=== PATIENT | female | born 1980 | race Caucasian/White ===

== ENCOUNTER 2018-11-19 13:12 | Outpatient (CLI) | payer OTHER ==
--- NOTE | 2018-11-19 14:10 | CT ---
EXAM: CT Lower Ext Lt WO Con PROVIDED CLINICAL HISTORY: Left knee pain after stepping off ladder in September 2018. Persistent pain. History of prior knee replace ment. COMPARISON: None FINDINGS: Postsurgical changes related to a left total knee prosthesis are noted. No hardware complication is a ppreciated. There is a transverse lucency extending through the inferior pole of the patella suggesting a nondisplaced fracture. This is at the level of the inferior aspect of the patellar prost hesis. No additional fracture is seen, and there is no dislocation seen. There is fluid seen within the suprapatellar bursa. No hematoma or fluid is seen within the subcutane ous soft tissues about the left knee. IMPRESSION: Postsurgical changes related to left total knee prosthesis with a nondisplaced fracture involving the inferior pole of the patella.
== END 2018-11-19 13:13 | disposition home or self-care (01) ==
LOC: BICCT 13:12
PROVIDERS: ATTEND Family Medicine
DX: M25.562 Pain in left knee (principal); S82.002A Unspecified fracture of left patella, initial encounter for closed fracture; Z96.652 Presence of left artificial knee joint

== ENCOUNTER 2019-02-19 10:18 | Outpatient (CLI) | payer OTHER ==
--- NOTE | 2019-02-19 15:55 | NM ---
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 RADIOPHARMACEUTICAL: 31 millicuries technetium 99m MDP injected intravenously. FINDINGS: There is no abnormal blood flow to either knee. There is a focus of increased blood pooling in the re gion of the right patella. There is also increased intensive uptake in the patella on the delayed christina ges. No increase in blood flow or blood pooling is seen in the left knee. The delayed images demonstr ate mild increased uptake consistent with postop changes of total knee arthroplasty. The remainder of the whole body exam demonstrates mild increased uptake consistent with degenerative changes in the shoulders and feet and mid and lower spine. There is focus of increased uptake in the anterior aspects of the left 6th and 7th ribs likely due to trauma. Trace excretion through the kidne ys is within normal limits. Increased uptake in the right patella is consistent with fracture seen on the CT scan of 11/19/18. IMPRESSION: No evidence of loosening or infection in the left knee arthroplasty. POS: ES
== END 2019-02-19 10:19 | disposition home or self-care (01) ==
LOC: NM 10:18
PROVIDERS: ATTEND Orthopaedic Surgery
DX: T84.033A Mechanical loosening of internal left knee prosthetic joint, initial encounter (principal)
CPT/HCPCS: 78315; A9503